=== PATIENT | female | born 1945 | race Caucasian/White ===

== ENCOUNTER 2024-08-10 03:58 | Day surgery (SDC) | payer OTHER ==
[2024-08-08 17:02] VITALS: BMI 30.6
[2024-08-10] MEDS ORDERED: ACETAMINOPHEN 500 MG TABLET (FP) PO PRN (08:56)
[2024-08-10 10:23] VITALS: PULSE 77; RESP 18
[2024-08-10] MEDS: IOHEXOL 180 MG/1 ML ML IJ ONE (12:24)
[2024-08-10] MEDS: LIDOCAINE HCL 1% PRESERVATIVE FREE - 30ML VIAL IJ ONE (12:24)
[2024-08-10] MEDS: BUPIVACAINE HCL/PF 0.5% (5 MG/ML) 30 ML VIAL IJ ONE (12:25)
[2024-08-10] MEDS: TRIAMCINOLONE ACET 40MG/1ML VIAL IM ONE (12:25)
[2024-08-10 13:05] VITALS: BP 120/63; TEMP 98.6
== END 2024-08-10 12:50 | disposition home or self-care (01) ==
LOC: JASU-SURG 03:58
PROVIDERS: ATTEND Pain Medicine Pain Medicine
PROC: 3E0U3BZ Introduction of Anesthetic Agent into Joints, Percutaneous Approach (ICD-10-PCS; 2024-08-10)
PROC: 3E0U33Z Introduction of Anti-inflammatory into Joints, Percutaneous Approach (ICD-10-PCS; principal; 2024-08-10 12:00)
DX: M53.3 Sacrococcygeal disorders, not elsewhere classified (principal)
CPT/HCPCS: 76000-TC-FY